=== PATIENT | male | born 1975 | race Hispanic/Latino ===

== ENCOUNTER → 2017-04-04 | Outpatient (CLI) | payer OTHER ==
[~2017-04-04] MED LIST: BENZ-51 PO; LEVO25TA54 PO; LEVO500T2 PO; LIPA1TAB3 PO; MONT10TA24 PO; OMEP40CA37 PO; PRED10TA23 PO
== END | disposition home or self-care (01) ==
LOC: CANPRECLI → RAH 08:51
PROVIDERS: ATTEND Internal Medicine
DX: K86.1 Other chronic pancreatitis (principal); K76.0 Fatty (change of) liver, not elsewhere classified; Z90.49 Acquired absence of other specified parts of digestive tract
CPT/HCPCS: 74181

== ENCOUNTER 2017-05-24 06:06 | Day surgery (SDC) | payer OTHER ==
[~2017-05-24] VITALS: Ht 172.7 cm; Wt 102.1 kg
[~2017-05-24 06:06] MED LIST changes: -BENZ-51 PO; +BUPIVACAINE/EPI/PF 0.25% 50 ML VIAL IV SCH; +BUPIVACAINE/PF 0.25% 30ML VIAL IJ SCH; -LEVO500T2 PO; -MONT10TA24 PO; -OMEP40CA37 PO; -PRED10TA23 PO; +TRIAMCINOLONE ACETONIDE 10MG/1ML 5ML VIAL IJ SCH
[2017-05-24] MEDS ORDERED: SODIUM CHLORIDE 0.9% 1000ML 1,000 ML IV ONE (06:30)
[2017-05-24 06:43] VITALS: BP 127/83
[2017-05-24] MEDS ORDERED: PRED10TA23 PO (07:20)
[2017-05-24] MEDS ORDERED: BENZ-51 PO (07:20)
[2017-05-24] MEDS ORDERED: OMEP40CA37 PO (07:20)
[2017-05-24] MEDS ORDERED: LEVO500T2 PO (07:20)
[2017-05-24] MEDS ORDERED: MONT10TA24 PO (07:20)
[2017-05-24] MEDS ORDERED: PROPOFOL 10 MG/ML 20ML VIAL IV ONE ×3 (08:03→08:39)
== END 2017-05-24 10:59 | disposition home or self-care (01) ==
LOC: ENDO 06:06 → DAH 06:06 → ENDO 10:59
PROVIDERS: ATTEND Internal Medicine
DX: K86.1 Other chronic pancreatitis (principal); E03.9 Hypothyroidism, unspecified; Z98.890 Other specified postprocedural states; Z90.49 Acquired absence of other specified parts of digestive tract; Z79.899 Other long term (current) drug therapy
CPT/HCPCS: 43253; A4215; A4606; J2704 ×3; J3301; J3490; J7030; 43232; 43238

== ENCOUNTER 2018-01-02 08:14 | Day surgery (SDC) | payer OTHER ==
[2018-01-02] VITALS (35 sets, daily range): BP systolic 89–131; BP diastolic 43–85
[~2018-01-02] VITALS: Ht 167.6 cm; Wt 101.6 kg
[~2018-01-02 08:14] MED LIST changes: +BENZ-51 PO; -BUPIVACAINE/EPI/PF 0.25% 50 ML VIAL IV SCH; +BUPIVACAINE/PF 0.25% 10ML VIAL IJ SCH; -BUPIVACAINE/PF 0.25% 30ML VIAL IJ SCH; +ETHYL ALCOHOL 5 ML VIAL IJ SCH; +LEVO500T2 PO; +MONT10TA24 PO; +OMEP40CA37 PO; +PRED10TA23 PO; +SODIUM CHLORIDE 0.9% 1000ML 1,000 ML IV ONE; -TRIAMCINOLONE ACETONIDE 10MG/1ML 5ML VIAL IJ SCH
[2018-01-02] MEDS ORDERED: BUPIVACAINE/PF 0.25% 50ML VIAL IJ SCH (09:30)
[2018-01-02] MEDS ORDERED: LEVO50TA11 PO (10:55)
[2018-01-02] MEDS ORDERED: ASPI-555 PO (10:55)
[2018-01-02] MEDS ORDERED: PROPOFOL 10 MG/ML 20ML VIAL IV ONE ×2 (11:14)
[2018-01-02] MEDS ORDERED: MORPHINE SULFATE 2 MG/ML 1ML SYG ONE (12:40)
[2018-01-02] MEDS ORDERED: MORPHINE SULFATE 2 MG/ML 1ML SYG IM SCH (13:00)
[2018-01-02] MEDS ORDERED: MORPHINE SULFATE 2 MG/ML 1ML SYG IM ONE (15:00)
[2018-01-02] MEDS ORDERED: MORPHINE SULFATE 2 MG/ML 1ML SYG IVP ONE (15:15)
== END 2018-01-02 15:25 | disposition home or self-care (01) ==
LOC: DAH 08:14 → ENDO 08:14
PROVIDERS: ATTEND Internal Medicine
DX: K86.1 Other chronic pancreatitis (principal); K31.89 Other diseases of stomach and duodenum; K29.50 Unspecified chronic gastritis without bleeding; E03.9 Hypothyroidism, unspecified; Z79.899 Other long term (current) drug therapy; Z90.49 Acquired absence of other specified parts of digestive tract; Z98.890 Other specified postprocedural states; Z90.89 Acquired absence of other organs
CPT/HCPCS: 43253; 74021; A4215; A4606; J2704 ×2; J3490; J7030; 43232